=== PATIENT | male | born 1945 | race Caucasian/White ===

== ENCOUNTER 2016-12-18 18:15 | Inpatient (IN) | payer MEDICARE, MEDICAID ==
[~2016-12-18] VITALS: Ht 165.1 cm; Wt 83.9 kg
[~2016-12-18 18:15] MED LIST: ABILIFY10 MG ORAL; ACETAMINOPHEN650 M2 ORAL; AMBIEN10 MG ORAL; ATIVAN2 MG ORAL; BISACODYL5 MG RECTAL; BUPROPION HCL100 M1 PO; COLACE100 MG ORAL; DEXTROSE 50% IV; DILAUDID1 MG/1 ML PO; DSS100 MG PO; FENOFIBRATE134 M1 PO; GABAPENTIN100 MG ORAL; HUMALOG100 UNIT/4 SQ; LEVEMIR100 UNIT/1 SQ; LEVEMIR100 UNIT/1 SUBQ; MAALOX PLUS X-150 ML PO; MILK OF MA400 MG/51 PO; MIRALAX17 G2 ORAL; MORPHINE SULFAT10 M1 PO; NITROGLYCERIN0.4 MG SL; NOVOLOG100 UNIT/3 SUBQ; NOVOLOG100 UNIT/4 SQ; PERCOCET 10-321 EACH ORAL; RESTORIL15 MG ORAL; ROBITUSSIN DM118 M1 PO; ROCEPHIN 11 GM/50 ML IVPB; TYLENOL650 MG/20. ORAL; [UNRECOGNIZED DRUG - REMARK]
[2016-12-18] MEDS ORDERED: Famotidine 20 MG/ 2ML VIAL IVP ONE (19:00)
[2016-12-18 19:36] LABS: MEAN CORPUSCULAR HEMOGLOBIN 31.4 PG (27.0-31.0); MEAN CORPUSCULAR VOLUME 92 FL (80-99); MEAN PLATELET VOLUME 7.6 FL (6.5-10.1); PLATELET COUNT 299 K/UL (150-450); WHITE BLOOD COUNT 18.5 K/UL (4.8-10.8)
[2016-12-18 20:00] VITALS: BP 180/103
--- NOTE | 2016-12-18 20:11 | Emergency Room Report ---
History of Present Illness General Chief Complaint: Behavioral Complaint Source: Patient (JOAN ORDONEZ M.D.) Present Illness HPI 71-year-old male presents to ED for evaluation. Patient states he is feeling weak with vomiting. Per EMS [facility]. Patient states he was unhappy there. Patient states he's been using cocaine for the last 3 days. Denies chest pain or shortness of breath. Notes generalized body pain. 10 out of 10. Nonradiating. Notes nausea and vomiting. patient states he is suicidal. No other aggravating or relieving factors. Denies any other associated symptoms (JOAN ORDONEZ M.D.) Allergies: Coded Allergies: ACETAMINOPHEN (Verified Allergy, Intermediate, nausea, 04/18/15) OXYCODONE (Verified Allergy, Intermediate, nausea, 04/18/15) Patient History Past Medical History: DM, HTN, asthma, COPD Past Surgical History: none Pertinent Family History: none Social History: Denies: alcohol use, drug use, smoking Immunizations: UTD Reviewed Nursing Documentation: PMH: Agreed, PSxH: Agreed (JOAN ORDONEZ M.D.) Nursing Documentation-PMH Hx Cardiac Problems: No Hx Hypertension: Yes Hx Asthma: Yes Hx COPD: Yes Hx Diabetes: Yes Hx Cancer: No Hx Gastrointestinal Problems: Yes Hx Neurological Problems: No Hx Peripheral Neuropathy: Yes (JOAN ORDONEZ M.D.) Review of Systems All Other Systems: negative except mentioned in HPI (JOAN ORDONEZ M.D.) Physical Exam Vital Signs Date Time Temp Pulse Resp B/P Pulse Ox O2 Delivery O2 Flow Rate FiO2 12/18/16 18:23 97.9 127 18 180/92 94 Room Air Sp02 EP Interpretation: reviewed, normal General Appearance: no apparent distress, alert, GCS 15, non-toxic Head: normocephalic, atraumatic Eyes: bilateral eye PERRL, bilateral eye normal inspection ENT: hearing grossly normal, normal pharynx, no angioedema, normal voice Neck: full range of motion, supple/symm/no masses Respiratory: chest non-tender, lungs clear, normal breath sounds, speaking full sentences Cardiovascular #1: regular rate, rhythm, no edema Cardiovascular #2: 2+ carotid (R), 2+ carotid (L), 2+ radial (R), 2+ radial (L) , 2+ dorsalis pedis (R), 2+ dorsalis pedis (L) Gastrointestinal: normal bowel sounds, non tender, soft, non-distended, no guarding, no rebound Rectal: deferred Genitourinary: normal inspection, no CVA tenderness Musculoskeletal: back normal, gait/station normal, normal range of motion, non- tender Neurologic: alert, oriented x3, responsive, motor strength/tone normal, sensory intact, speech normal Psychiatric: judgement/insight normal, memory normal, mood/affect normal, depressed affect, anxious Reflexes: 3+ bicep (R), 3+ bicep (L), 3+ tricep (R), 3+ tricep (L), 3+ knee (R) , 3+ knee (L) Skin: normal color, no rash, warm/dry, well hydrated Lymphatic: no adenopathy (JOAN ORDONEZ M.D.) Medical Decision Making Diagnostic Impression: Primary Impression: Behavioral disorder Additional Impressions: Cocaine abuse Diabetes Qualified Codes: E10.65 - Type 1 diabetes mellitus with hyperglycemia Dehydration Weakness ER Course Patient sign out to me. He left the [facility] for 3 days to use cocaine. Now felt weak and suicidal. His blood sugars very high. No evidence of DKA. I discussed the case with Dr. De La Cruz who will admit. (LUCY HTOMPSON M.D.) EKG Diagnostic Results EKG Time: 20:09 Rate: tachycardiac Rhythm: NSR ST Segments: no acute changes ASA given to the pt in ED: No (JOAN ORDONEZ M.D.) Rhythm Strip Diag. Results Rhythm Strip Time: 20:09 EP Interpretation: yes Rhythm: NSR, no PVC's, no ectopy (JOAN ORDONEZ M.D.) Chest X-Ray Diagnostic Results Chest X-Ray Ordered: No (JOAN ORDONEZ M.D.) Chest X-Ray Ordered: No (LUCY THOMPSON M.D.) Last Vital Signs Date Time Temp Pulse Resp B/P Pulse Ox O2 Delivery O2 Flow Rate FiO2 12/18/16 18:23 97.9 127 18 180/92 94 Room Air (JOAN ORDONEZ M.D.) Status: improved (LUCY THOMPSON M.D.) Disposition: ADMITTED INPATIENT Condition: Serious Referrals: NON PHYSICIAN (PCP) JOAN ORDONEZ M.D. Dec 18, 2016 20:11 LUCY THOMPSON M.D. Dec 18, 2016 21:52
[2016-12-18] MEDS ORDERED: LORazepam Inj 2mg/ml 1ml IV ONE (20:15)
[2016-12-18 20:20] LABS: ACETAMINOPHEN < 10 ug/mL (10-30); ALANINE AMINOTRANSFERASE 15 U/L (3-41); ALBUMIN/GLOBULIN RATIO 1.2 (1.0-2.7); ALCOHOL < 10 mg/dL; ANION GAP 23 (5-15); ASPARTATE AMINO TRANSFERASE 23 U/L (5-40); CALCIUM 10.7 mg/dL (8.6-10.2); CARBON DIOXIDE 20 mEQ/L (20-30); CHLORIDE 90 mEQ/L (98-107); CREATININE 1.6 mg/dL (0.7-1.2); GLOMERULAR FILTRATION RATE 42.9 mL/min (>60); HEMOLYSIS 0; POTASSIUM 4.2 mEQ/L (3.4-4.9); SODIUM 133 mEQ/L (135-145); TOTAL PROTEIN 8.4 g/dL (6.6-8.7); TROPONIN I < 0.30 ng/mL (<=0.30)
[2016-12-18 20:30] LABS: CKMB 4.7 ng/mL (< 6.7)
[2016-12-18 21:14] LABS: BAND NEUTROPHILS % (MANUAL) 4 % (0-8); BASOPHILS % (MANUAL) 0 % (0-2); EOSINOPHILS % (MANUAL) 0 % (0-3); LYMPHOCYTES % (MANUAL) 3 % (20-45); NEUTROPHILS % (MANUAL) 88 % (45-75); PLATELET ESTIMATE ADEQUATE; PLATELET MORPHOLOGY NORMAL; TOTAL CELLS COUNTED 100
[2016-12-18 21:30] VITALS: BP 180/102
[2016-12-18 22:30] VITALS: BP 147/95
[2016-12-18 23:44] VITALS: BP 149/82
[2016-12-19 01:13] VITALS: BP 148/87
[2016-12-19] MEDS ORDERED: NOVOLOG100 UNIT/3 SUBQ (03:44)
[2016-12-19] MEDS ORDERED: DUONEB 0.5-3(2.53 ML HHN (03:44)
[2016-12-19] MEDS ORDERED: ZOFRAN4 M3 ORAL (03:44)
[2016-12-19] MEDS ORDERED: QUETIAPINE FUM100 MG ORAL (03:44)
[2016-12-19] MEDS ORDERED: HYDRALAZINE HCL25 M1 ORAL (03:44)
[2016-12-19] MEDS ORDERED: ACTOS15 MG ORAL (03:44)
[2016-12-19] MEDS ORDERED: THEOPHYLLINE A100 MG ORAL (03:44)
[2016-12-19] MEDS ORDERED: FLEET ENEMA133 ML RECTAL (03:44)
[2016-12-19] MEDS ORDERED: ACETAMINOPHEN325 M1 ORAL (03:44)
[2016-12-19] MEDS ORDERED: FLONASE ALLERG9.9 ML NS (03:44)
[2016-12-19] MEDS ORDERED: FERROUS SULFAT325 MG ORAL (03:44)
[2016-12-19] MEDS ORDERED: ARTIFICIAL TEA1 EAC2 OP (03:44)
[2016-12-19] MEDS ORDERED: CALCIUM CA500 MG/5 M PO (03:44)
[2016-12-19] MEDS ORDERED: NORCO 10-325 T1 EACH ORAL (03:44)
[2016-12-19] MEDS ORDERED: DuoNeb 0.5-3(2.5)mg/3ml neb HHN PRN (03:45)
[2016-12-19] MEDS ORDERED: HydrALAZINE 25mg tab ORAL PRN (03:45)
[2016-12-19] MEDS ORDERED: Fleet's Enema 133ml RECTAL PRN (03:45)
[2016-12-19] MEDS ORDERED: Milk of Magnesia 30ml Ud ORAL PRN (03:45)
[2016-12-19 04:00] VITALS: BP 158/94
[2016-12-19] MEDS ORDERED: Levemir Flexpen SUBQ SCH (06:30)
[2016-12-19] MEDS ORDERED: NovoLOG Insulin Flexpen SUBQ SCH (06:30)
[2016-12-19] MEDS: NovoLOG Insulin Flexpen SUBQ SCH ×7 (06:30→20:23)
[2016-12-19] MEDS: 1/2NS w/KCl 20mEq 1000ml 1,000 ML IV SCH ×2 (06:37→15:55)
[2016-12-19] MEDS: MS Contin 15mg tab ORAL SCH ×3 (06:39→22:27)
[2016-12-19 07:30] LABS: BASOPHILS % (AUTO) 0.3 % (0.0-2.0); EOSINOPHILS % (AUTO) 0.1 % (0.0-3.0); LYMPHOCYTES % (AUTO) 18.5 % (20.0-45.0); MEAN CORPUSCULAR HGB CONC 34.8 G/DL (32.0-36.0); MEAN CORPUSCULAR VOLUME 89 FL (80-99); MEAN PLATELET VOLUME 8.2 FL (6.5-10.1); MONOCYTES % (AUTO) 8.7 % (1.0-10.0); NEUTROPHILS % (AUTO) 72.4 % (45.0-75.0); PLATELET COUNT 248 K/UL (150-450); RED BLOOD COUNT 4.67 M/UL (4.70-6.10); RED CELL DISTRIBUTION WIDTH 11.3 % (11.6-14.8); WHITE BLOOD COUNT 15.4 K/UL (4.8-10.8)
[2016-12-19 07:46] LABS: CALCIUM 9.7 mg/dL (8.6-10.2); CREATININE 1.3 mg/dL (0.7-1.2); GLOMERULAR FILTRATION RATE 54.6 mL/min (>60); MAGNESIUM 1.7 mg/dL (1.7-2.5); POTASSIUM 3.7 mEQ/L (3.4-4.9)
[2016-12-19 08:09] VITALS: BP 155/94
[2016-12-19] MEDS: Artificial Tears 1.4% Op Soln BOTH EYES SCH (08:55)
[2016-12-19] MEDS: Flonase Nasal Inhaler 16gm NASAL SCH (08:55)
[2016-12-19] MEDS: Lisinopril 20mg tab ORAL SCH (08:55)
[2016-12-19] MEDS: BuPROPion SR 100mg tab ORAL SCH (08:56)
[2016-12-19] MEDS: Heparin 5000 units/ml inj SUBQ SCH ×2 (08:57→20:19)
[2016-12-19] MEDS ORDERED: Theophylline ER 100mg ORAL SCH (09:00)
[2016-12-19] MEDS ORDERED: Calcium Carbonate 1250mg/5ml Liquid ud ORAL SCH (09:00)
[2016-12-19] MEDS: Norco 10mg/325mg tab ORAL PRN ×2 (09:29→15:54)
[2016-12-19] MEDS ORDERED: Nitroglycerin Subl 0.4mg tab (Bottle Of 25) SL PRN ×2 (11:00)
[2016-12-19 16:18] VITALS: BP 122/77
[2016-12-19 20:02] VITALS: BP 143/93
[2016-12-19] MEDS: LORazepam 1mg tab ORAL PRN (20:16)
[2016-12-19] MEDS: Levemir Flexpen SUBQ SCH (20:20)
--- NOTE | 2016-12-19 22:45 | History and Physical Report ---
DATE OF ADMISSION: 12/18/2016 CHIEF COMPLAINT: The patient is "suicidal". HISTORY OF PRESENT ILLNESS: This is a 71-year-old male [facility]. The patient has multiple medical problems among which he has a history of psychiatric issues. According to the patient, he felt locked in his [facility] and was trying to get out and have some crack cocaine. After that, he returned to his [facility] and felt suicidal. The patient was transferred via paramedics to [facility]. I was called by the patient's primary physician, Dr. Jaz Mcmillan, to follow the patient in the hospital while he is admitted. PAST MEDICAL HISTORY: 1. Type 2 diabetes mellitus. 2. Hypertensive cardiovascular disease. 3. Psychosis. 4. COPD. 5. Polysubstance abuse. 6. Suicidal ideation. HOME MEDICATIONS: Insulin Levemir, FlexPen, NovoLog sliding scale, Actos, Artificial Tears, BuSpar, extended release calcium carbonate, cranberry tablets, Dulcolax suppositories, DuoNeb inhalation, oral iron, Fleet Enema p.r.n., Flonase, hydralazine tablets, Lisinopril, Lorazepam, Lovenox, milk of magnesia, MS Contin, [place], Zofran p.r.n., Seroquel, and theophylline extended release. ALLERGIES: No known drug allergies. FAMILY HISTORY: Unremarkable. SOCIAL HISTORY: Significant for history of polysubstance abuse including narcotics, cocaine, and smoking cigarettes. REVIEW OF SYSTEMS: HEENT: Hearing and eyesight are normal. ENDOCRINE: Significant for type 2 diabetes mellitus. RESPIRATORY: Significant for shortness of breath. PSYCHIATRIC: Significant for history of depression and schizophrenia. PHYSICAL EXAMINATION: GENERAL: This is an elderly male, who is in no acute distress. VITAL SIGNS: Blood pressure is 155/94, pulse 104, sinus tachycardia, respirations 18, and temperature 97 oral. HEENT: The head is normocephalic and atraumatic. Pupils are equal, round, and reactive to light and accommodation consensually. NECK: Supple. Trachea midline. There is no lymphadenopathy or thyromegaly. LUNGS: Bilateral wheezes. HEART: Regular rate and rhythm without rubs, murmurs, or gallops. ABDOMEN: Soft and nontender. Bowel sounds were active. EXTREMITIES: No clubbing, cyanosis, or edema. NEUROLOGICAL: He is alert and oriented x4. Cranial nerves II through XII intact. LABORATORY AND ANCILLARY DATA: CBC shows initially white count of 18,500, and then today 15,400 with 88% neutrophils and 4% bands. Serum chemistry on admission, glucose 546, today 285. Admission creatinine 1.6, today 1.3. Tox screen significant for opiates, amphetamines, and cocaine. ASSESSMENT: 1. Type 2 diabetes mellitus out of control. 2. Polysubstance abuse. 3. Leukocytosis, rule out sepsis, rule out drug induced abscess with septicemia, rule out pneumonia. PLAN: 1. Check urinalysis 2. Check chest x-ray. 3. Broad-spectrum intravenous antibiotics after cultures. 4. Glycemic control. 5. Continue [facility] medications. 6. Psychiatric consultation. Niya Maxwell M.D. DRNely SOUSA JOB#: [id number] CC:
[2016-12-20] VITALS: BP 113/70
[2016-12-20 04:00] VITALS: BP 126/71
[2016-12-20] MEDS: MS Contin 15mg tab ORAL SCH ×3 (06:28→21:26)
[2016-12-20] MEDS: NovoLOG Insulin Flexpen SUBQ SCH ×7 (06:30→21:00)
[2016-12-20] MEDS: 1/2NS w/KCl 20mEq 1000ml 1,000 ML IV SCH (06:31)
[2016-12-20 07:17] LABS: ALANINE AMINOTRANSFERASE 11 U/L (3-41); ALBUMIN/GLOBULIN RATIO 1.1 (1.0-2.7); ANION GAP 15 (5-15); ASPARTATE AMINO TRANSFERASE 19 U/L (5-40); CALCIUM 8.8 mg/dL (8.6-10.2); CARBON DIOXIDE 24 mEQ/L (20-30); CHLORIDE 100 mEQ/L (98-107); GLOMERULAR FILTRATION RATE > 60 mL/min (>60); HEMOLYSIS 3; MAGNESIUM 1.5 mg/dL (1.7-2.5); POTASSIUM 3.6 mEQ/L (3.4-4.9); SODIUM 139 mEQ/L (135-145); TOTAL PROTEIN 5.7 g/dL (6.6-8.7)
[2016-12-20 07:44] LABS: BASOPHILS % (AUTO) 1.1 % (0.0-2.0); EOSINOPHILS % (AUTO) 2.4 % (0.0-3.0); LYMPHOCYTES % (AUTO) 38.3 % (20.0-45.0); MEAN CORPUSCULAR HEMOGLOBIN 30.2 PG (27.0-31.0); MEAN CORPUSCULAR HGB CONC 33.5 G/DL (32.0-36.0); MEAN CORPUSCULAR VOLUME 90 FL (80-99); MEAN PLATELET VOLUME 8.1 FL (6.5-10.1); MONOCYTES % (AUTO) 10.3 % (1.0-10.0); NEUTROPHILS % (AUTO) 47.9 % (45.0-75.0); PLATELET COUNT 191 K/UL (150-450); RED BLOOD COUNT 4.03 M/UL (4.70-6.10); RED CELL DISTRIBUTION WIDTH 11.7 % (11.6-14.8); WHITE BLOOD COUNT 8.4 K/UL (4.8-10.8)
[2016-12-20 08:06] VITALS: BP 136/77
[2016-12-20] MEDS: Levemir Flexpen SUBQ SCH ×3 (08:38→21:30)
[2016-12-20] MEDS: Heparin 5000 units/ml inj SUBQ SCH ×3 (08:38→21:30)
[2016-12-20] MEDS: BuPROPion SR 100mg tab ORAL SCH (08:39)
[2016-12-20] MEDS: Artificial Tears 1.4% Op Soln BOTH EYES SCH (08:39)
[2016-12-20] MEDS: Flonase Nasal Inhaler 16gm NASAL SCH (08:39)
[2016-12-20] MEDS: Lisinopril 20mg tab ORAL SCH (08:39)
[2016-12-20] MEDS: Norco 10mg/325mg tab ORAL PRN (09:00)
--- NOTE | 2016-12-20 11:16 | Consultation ---
Consult Note Consult Note I'm the pt psychiatrist for the past 6 years the pt pw with suicidal ideation when he has unstable living situation/financial issue. the pt may need psych hospitalization. the pts condition is chronic. the pt outpt pmd is dr. mel schmidt. Thanks Gwen Louis M.D. Dec 20, 2016 11:16
[2016-12-20 12:30] VITALS: BP 107/72
[2016-12-20] MEDS: LORazepam 1mg tab ORAL PRN ×2 (12:57→21:25)
--- NOTE | 2016-12-20 14:52 | General Progress Note ---
Assessment/Plan Problem List: (1) Hypertension ICD Codes: I10 - Essential (primary) hypertension SNOMED: 29297114 (2) Osteoarthritis ICD Codes: M19.90 - Osteoarthritis SNOMED: 992065493 (3) Diabetes ICD Codes: E11.9 - Diabetes mellitus SNOMED: 13425238 Qualifiers: Qualified Codes: E10.65 - Type 1 diabetes mellitus with hyperglycemia (4) Cocaine abuse ICD Codes: F14.10 - Cocaine abuse, uncomplicated SNOMED: 51308282, 429084909 (5) Behavioral disorder SNOMED: 034227206, 76812791 (6) Gastritis ICD Codes: K29.70 - Gastritis, unspecified, without bleeding SNOMED: 3327160 (7) Chest pain ICD Codes: R07.9 - Chest pain, unspecified SNOMED: 41879200 Assessment/Plan chest pain atypical, history of ulcer anti ulcer rx given. check ekg and troponins. may need transfer to psych unit Subjective Constitutional: Reports: weakness HEENT: Reports: no symptoms Cardiovascular: Reports: chest pain Respiratory: Reports: no symptoms Gastrointestinal/Abdominal: Reports: other - heartburn Genitourinary: Reports: no symptoms Neurologic/Psychiatric: Reports: no symptoms Endocrine: Reports: no symptoms Hematologic/Lymphatic: Reports: no symptoms Allergies: Coded Allergies: ACETAMINOPHEN (Verified Allergy, Intermediate, nausea, 04/18/15) OXYCODONE (Verified Allergy, Intermediate, nausea, 04/18/15) Subjective still suicidal Objective Last 24 Hour Vital Signs Date Time Temp Pulse Resp B/P Pulse Ox O2 Delivery O2 Flow Rate FiO2 12/20/16 12:30 97.4 82 18 107/72 94 Room Air 12/20/16 09:59 97.3 12/20/16 08:39 136/77 12/20/16 08:13 92 18 Room Air 12/20/16 08:06 97.3 85 18 136/77 95 Room Air 12/20/16 04:00 97.7 83 18 126/71 94 Room Air 12/20/16 00:00 97.7 84 18 113/70 94 Room Air 12/19/16 20:07 101 18 Room Air 12/19/16 20:02 98.2 88 18 143/93 95 Room Air 12/19/16 16:18 97.7 89 15 122/77 95 Room Air Intake and Output 12/19/16 12/20/16 19:00 07:00 Intake Total 1750 ml 1305 ml Output Total 600 ml Balance 1150 ml 1305 ml Intake Oral 800 ml 480 ml IV Total 950 ml 825 ml Output Urine Total 600 ml # Voids 2 Laboratory Tests 12/20/16 04:40: White Blood Count 8.4, Red Blood Count 4.03L, Hemoglobin 12.2L, Hematocrit 36.3L , Mean Corpuscular Volume 90, Mean Corpuscular Hemoglobin 30.2, Mean Corpuscular Hemoglobin Concent 33.5, Red Cell Distribution Width 11.7, Platelet Count 191, Mean Platelet Volume 8.1, Neutrophils (%) (Auto) 47.9, Lymphocytes (% ) (Auto) 38.3, Monocytes (%) (Auto) 10.3H, Eosinophils (%) (Auto) 2.4, Basophils (%) (Auto) 1.1, Sodium Level 139, Potassium Level 3.6, Chloride Level 100, Carbon Dioxide Level 24, Anion Gap 15, Blood Urea Nitrogen 18, Creatinine 1.0, Estimat Glomerular Filtration Rate > 60, Glucose Level 81#, Calcium Level 8.8, Magnesium Level 1.5L, Total Bilirubin 0.4, Aspartate Amino Transf (AST/SGOT ) 19, Alanine Aminotransferase (ALT/SGPT) 11, Alkaline Phosphatase 44, Total Creatine Kinase 60, Total Protein 5.7#L, Albumin 3.1L, Globulin 2.6, Albumin/ Globulin Ratio 1.1 Height (Feet): 5 Height (Inches): 5.00 Weight (Pounds): 185 General Appearance: no apparent distress, obese EENT: PERRL/EOMI Neck: non-tender, normal alignment Cardiovascular: normal rate, regular rhythm Respiratory/Chest: lungs clear Abdomen: non tender, soft, no organomegaly Edema: no edema noted Arm (L), no edema noted Arm (R), no edema noted Leg (L), no edema noted Leg (R), no edema noted Pedal (L), no edema noted Pedal (R), no edema noted Generalized Neurologic: concrete sculptor II-XII grossly normal DANG GROVES Dec 20, 2016 14:52
[2016-12-20] MEDS ORDERED: Mylanta II UD 30ml ORAL PRN (15:00)
[2016-12-20] MEDS ORDERED: Tubing IV Secondary IV ONE (15:45)
[2016-12-20 16:07] VITALS: BP 117/56
[2016-12-20] MEDS: Sucralfate 1gm tab ORAL SCH ×2 (17:11→21:25)
[2016-12-20 17:28] LABS: TROPONIN I < 0.30 ng/mL (<=0.30)
[2016-12-20 19:00] VITALS: BP 126/79
[2016-12-21] VITALS (7 sets, daily range): BP systolic 119–131; BP diastolic 67–76
--- NOTE | 2016-12-21 03:45 | Progress Note ---
DATE: 12/19/2016 SUBJECTIVE: This is a 71-year-old male with a history of bipolar disorder psychiatrist at the [facility] as well as in the past, I have treated the patient for the past five years. The patient most of the time is very labile and has poor insight and judgment into his mental condition, easily agitated and on his recent admission, it appears the patient has left the facility, used cocaine and ended up calling 911. The patient was therefore brought into the emergency room via paramedics. The patient presents with depressed mood, anhedonia, anxiety, agitation, and stated he has suicidal ideation. He is also very paranoid. PAST PSYCHIATRIST HOSPITALIZATION: Several psychiatric hospitals diagnosed with bipolar disorder with psychotic features. Has been treated with Wellbutrin and Seroquel. PAST MEDICAL HISTORY: Significant for type 2 diabetes, hypertension obesity, and COPD. ALLERGIES: No known drug allergies. SUBSTANCE ABUSE HISTORY: Significant for smoking. He occasionally abuses cocaine and alcohol. MENTAL STATUS EXAMINATION: The patient is oriented x4. Mood is depressed and anxious. Affect is constricted. Congruent mood. Thought process is circumstantial. Thought content positive for suicidal ideation. No plan or intent. Cognition is impaired. ASSESSMENT: AXIS I Bipolar disorder with psychotic features. AXIS II Deferred. AXIS III As above. AXIS IV Low. AXIS V . PLAN: 1. We will continue the Seroquel 100 mg nightly. 2. Wellbutrin 100 mg in the morning. 3. Ativan as needed. 4. Provide the patient with supportive therapy and reality orientation. 5. The patient does not want his previous [facility], therefore is a placement issue. Gwen Louis M.D. DR: Susana JOB#: [id number] CC:
[2016-12-21] MEDS: MS Contin 15mg tab ORAL SCH ×2 (06:07→14:13)
[2016-12-21] MEDS: NovoLOG Insulin Flexpen SUBQ SCH ×6 (06:08→16:58)
[2016-12-21 06:48] LABS: ANION GAP 11 (5-15); CARBON DIOXIDE 25 mEQ/L (20-30); CHLORIDE 103 mEQ/L (98-107); CREATININE 1.2 mg/dL (0.7-1.2); GLOMERULAR FILTRATION RATE 59.9 mL/min (>60); HEMOLYSIS 6; POTASSIUM 4.1 mEQ/L (3.4-4.9); SODIUM 139 mEQ/L (135-145)
[2016-12-21 06:59] LABS: BASOPHILS % (AUTO) 1.1 % (0.0-2.0); EOSINOPHILS % (AUTO) 4.6 % (0.0-3.0); LYMPHOCYTES % (AUTO) 38.3 % (20.0-45.0); MEAN CORPUSCULAR HEMOGLOBIN 30.6 PG (27.0-31.0); MEAN CORPUSCULAR HGB CONC 33.7 G/DL (32.0-36.0); MEAN CORPUSCULAR VOLUME 91 FL (80-99); MEAN PLATELET VOLUME 8.4 FL (6.5-10.1); MONOCYTES % (AUTO) 8.9 % (1.0-10.0); NEUTROPHILS % (AUTO) 47.2 % (45.0-75.0); PLATELET COUNT 171 K/UL (150-450); RED BLOOD COUNT 4.03 M/UL (4.70-6.10); RED CELL DISTRIBUTION WIDTH 11.6 % (11.6-14.8); WHITE BLOOD COUNT 5.8 K/UL (4.8-10.8)
[2016-12-21 07:59] LABS: TROPONIN I < 0.30 ng/mL (<=0.30)
[2016-12-21] MEDS: Artificial Tears 1.4% Op Soln BOTH EYES SCH (09:37)
[2016-12-21] MEDS: Flonase Nasal Inhaler 16gm NASAL SCH (09:38)
[2016-12-21] MEDS: BuPROPion SR 100mg tab ORAL SCH (09:39)
[2016-12-21] MEDS: Levemir Flexpen SUBQ SCH (09:44)
[2016-12-21] MEDS: Heparin 5000 units/ml inj SUBQ SCH (09:44)
[2016-12-21] MEDS: Sucralfate 1gm tab ORAL SCH ×3 (09:45→17:32)
[2016-12-21] MEDS: Lisinopril 20mg tab ORAL SCH (09:45)
--- NOTE | 2016-12-21 11:47 | Diagnostic Imaging Report ---
Indication: Cough Technique: One view of the chest Comparison: 01/01/2015 Findings: Lungs and pleural spaces are clear. Heart size is normal. No significant change Impression: No acute process
[2016-12-21] MEDS ORDERED: PROTONIX40 MG ORAL (18:27)
--- NOTE | 2016-12-22 04:15 | Discharge Summary ---
DATE OF ADMISSION: 12/18/2016 DATE OF DISCHARGE: 12/21/2016 PERTINENT HISTORY: The patient is a 71-year-old male, a resident of an [facility], has longstanding psychiatric problems and apparently felt suicidal and was transferred to the hospital. The patient has a history of adult onset diabetes, hypertensive heart disease, COPD, polysubstance abuse, and suicidal ideation. He apparently took cocaine prior to the admission. PERTINENT PHYSICAL FINDINGS: See the dictation by Dr. Maxwell . HEENT: Negative. NECK: No adenopathy. LUNGS: Bilateral wheezing. HEART: Regular rhythm. ABDOMEN: Soft. No organomegaly. EXTREMITIES: No edema. NEUROLOGIC: He is alert and oriented. COURSE IN THE HOSPITAL: The patient had leukocytosis with a white count of 18.5. He had a glucose high as 546 and creatinine 1.6 on admission. He has a positive drug screen for opiates, amphetamines, and cocaine. The patient was hydrated and placed on empiric antibiotics and cultures were taken. Final cultures were negative. He has no fevers. His leukocytosis improved with therapy. His glucose came under better control. His wheezing improved with nebulizer treatment. He was seen in psychiatric consultation by Dr. Louis, who cleared the patient to come to the [facility]. He also had some complaints of epigastric pain, gastritis, and atypical chest pain. His troponins were negative. He is placed on PPI for gastritis. He felt some better and tolerate a diet. His lungs are clear. Heart, regular rhythm. Abdomen, soft. Extremities, no edema. On the day of discharge, he was discharged to an ECF in a stable condition. FINAL DIAGNOSES: 1. Polysubstance abuse. 2. Leukocytosis possibly due to drugs. 3. Insulin-dependent diabetes with hyperglycemia. 4. Gastritis. 5. Chronic obstructive pulmonary disease with exacerbation. 6. Hypertensive heart disease. 7. History of chronic pain and opiate dependance. 8. History of depression and psychosis. DISCHARGE DISPOSITION: He is discharged to the ECF on diabetic diet. DISCHARGE MEDICATIONS: Per the discharge medication list. FOLLOWUP: Follow up by Dr. Jaz Mcmillan, his primary physician . Roberto Shaw M.D. DR: Rosaura JOB#: [id number] CC:
== END 2016-12-21 19:44 | DRG 897 ==
LOC: EDBD 18:15 → EMR 19:01 → 4E 21:25 → EDBEDREQ 21:35
DX: F14.10 Cocaine abuse, uncomplicated (principal); F11.20 Opioid dependence, uncomplicated; R45.851 Suicidal ideations; I11.9 Hypertensive heart disease without heart failure; F31.89 Other bipolar disorder; E11.65 Type 2 diabetes mellitus with hyperglycemia; E86.0 Dehydration; Z79.4 Long term (current) use of insulin; F19.10 Other psychoactive substance abuse, uncomplicated; M19.90 Unspecified osteoarthritis, unspecified site; K29.70 Gastritis, unspecified, without bleeding; Z88.6 Allergy status to analgesic agent; F22 Delusional disorders; E66.9 Obesity, unspecified; R07.89 Other chest pain; G89.29 Other chronic pain
CPT/HCPCS: 36415; 71020; 80048; 80053; 80300; 80329; 82550; 82553; 82962; 83735; 84484; 85007; 85025; 87081; 87086; 93005; 94664; J2405